=== PATIENT | female | born 1965 | race Two or more races ===

== ENCOUNTER 2017-04-24 09:59 | Outpatient (CLI) | payer OTHER ==
[~2017-04-24 09:59] MED LIST: CLONAZEPAM0.5 MG; CYMBALTA20 MG; DEPAKOTE ER500 MG; LEVOFLOXACIN250 MG PO; [UNRECOGNIZED DRUG - OTHER] PO
== END 2017-04-24 10:04 | disposition home or self-care (01) ==
LOC: LAB 09:59
DX: N91.2 Amenorrhea, unspecified (principal); E78.4 Other hyperlipidemia; E34.9 Endocrine disorder, unspecified; N95.1 Menopausal and female climacteric states; E23.6 Other disorders of pituitary gland; R19.00 Intra-abdominal and pelvic swelling, mass and lump, unspecified site; N39.0 Urinary tract infection, site not specified; E55.9 Vitamin D deficiency, unspecified; N73.9 Female pelvic inflammatory disease, unspecified; A60.04 Herpesviral vulvovaginitis

== ENCOUNTER 2017-06-05 09:26 | Outpatient (CLI) | payer OTHER | END 2017-06-05 09:32 | disposition home or self-care (01) | LOC: LAB 09:26 | DX: E78.4 Other hyperlipidemia (principal); E55.9 Vitamin D deficiency, unspecified; N95.1 Menopausal and female climacteric states; N39.0 Urinary tract infection, site not specified; R19.00 Intra-abdominal and pelvic swelling, mass and lump, unspecified site ==

== ENCOUNTER → 2017-07-11 | Outpatient (CLI) | payer OTHER | END | disposition home or self-care (01) | LOC: LAB 08:14 | DX: I10 Essential (primary) hypertension (principal); E11.9 Type 2 diabetes mellitus without complications; E78.2 Mixed hyperlipidemia; R00.8 Other abnormalities of heart beat ==

== ENCOUNTER 2017-07-25 09:00 | Outpatient (CLI) | payer OTHER | END 2017-07-25 09:06 | disposition home or self-care (01) | LOC: MAMO-SONO 09:00 | DX: Z12.31 Encounter for screening mammogram for malignant neoplasm of breast (principal); Z87.898 Personal history of other specified conditions ==

== ENCOUNTER 2017-08-01 07:48 | Outpatient (CLI) | payer OTHER | END 2017-08-01 11:46 | disposition home or self-care (01) | LOC: LAB 07:48 | DX: E78.4 Other hyperlipidemia (principal); N60.81 Other benign mammary dysplasias of right breast; R87.613 High grade squamous intraepithelial lesion on cytologic smear of cervix (HGSIL); F32.2 Major depressive disorder, single episode, severe without psychotic features; E78.2 Mixed hyperlipidemia ==

== ENCOUNTER 2017-08-15 09:14 | Outpatient (CLI) | payer OTHER | END 2017-08-15 09:18 | disposition home or self-care (01) | LOC: RX STUDY 09:14 | DX: K59.04 Chronic idiopathic constipation (principal); R13.14 Dysphagia, pharyngoesophageal phase; K30 Functional dyspepsia ==

== ENCOUNTER 2017-08-22 07:24 | Outpatient (CLI) | payer OTHER | END 2017-08-22 07:33 | disposition home or self-care (01) | LOC: LAB 07:24 | DX: N39.0 Urinary tract infection, site not specified (principal); N60.81 Other benign mammary dysplasias of right breast; R87.612 Low grade squamous intraepithelial lesion on cytologic smear of cervix (LGSIL); J32.2 Chronic ethmoidal sinusitis; E78.2 Mixed hyperlipidemia; Z01.812 Encounter for preprocedural laboratory examination; R82.79 Other abnormal findings on microbiological examination of urine ==

== ENCOUNTER 2017-09-16 07:10 | Outpatient (CLI) | payer OTHER | END 2017-09-16 08:12 | disposition home or self-care (01) | LOC: LAB 07:10 | DX: B19.9 Unspecified viral hepatitis without hepatic coma (principal); R10.84 Generalized abdominal pain; D64.89 Other specified anemias; E03.4 Atrophy of thyroid (acquired); E78.2 Mixed hyperlipidemia; N39.0 Urinary tract infection, site not specified; E11.65 Type 2 diabetes mellitus with hyperglycemia ==

== ENCOUNTER 2017-09-16 13:44 | Outpatient (CLI) | payer OTHER | END 2017-09-16 13:46 | disposition home or self-care (01) | LOC: SONOGRAMA 13:44 | DX: N31.8 Other neuromuscular dysfunction of bladder (principal) ==

== ENCOUNTER → 2017-10-11 | Outpatient (CLI) | payer OTHER | END | disposition home or self-care (01) | LOC: LAB 10:01 | DX: E11.9 Type 2 diabetes mellitus without complications (principal); I10 Essential (primary) hypertension; E78.2 Mixed hyperlipidemia; R10.2 Pelvic and perineal pain ==

== ENCOUNTER 2017-11-05 07:32 | Outpatient (CLI) | payer OTHER | END 2017-11-05 07:43 | disposition home or self-care (01) | LOC: LAB 07:32 | DX: D64.89 Other specified anemias (principal); D39.0 Neoplasm of uncertain behavior of uterus; N39.0 Urinary tract infection, site not specified; E78.4 Other hyperlipidemia; E03.8 Other specified hypothyroidism; M45.4 Ankylosing spondylitis of thoracic region; E55.9 Vitamin D deficiency, unspecified; I48.91 Unspecified atrial fibrillation; E11.8 Type 2 diabetes mellitus with unspecified complications; R82.79 Other abnormal findings on microbiological examination of urine ==

== ENCOUNTER 2017-11-05 12:45 | Outpatient (CLI) | payer OTHER | END 2017-11-05 12:49 | disposition home or self-care (01) | LOC: RAD 12:45 | DX: M06.4 Inflammatory polyarthropathy (principal) ==

== ENCOUNTER 2017-11-07 10:48 | Outpatient (CLI) | payer OTHER | END 2017-11-07 12:28 | disposition home or self-care (01) | LOC: NUCLEAR 10:48 | DX: I87.323 Chronic venous hypertension (idiopathic) with inflammation of bilateral lower extremity (principal); I87.2 Venous insufficiency (chronic) (peripheral) ==

== ENCOUNTER 2017-11-07 12:06 | Outpatient (CLI) | payer OTHER | END 2017-11-07 13:38 | disposition home or self-care (01) | LOC: MRI 12:06 | DX: M54.16 Radiculopathy, lumbar region (principal) | CPT/HCPCS: 72148 ==

== ENCOUNTER 2017-11-07 12:26 | Outpatient (CLI) | payer OTHER | END 2017-11-07 12:28 | disposition home or self-care (01) | LOC: SONOGRAMA 12:26 | DX: M05.66 Rheumatoid arthritis of knee with involvement of other organs and systems (principal) ==

== ENCOUNTER 2018-03-28 09:41 | Outpatient (CLI) | payer OTHER | END 2018-03-28 09:51 | disposition home or self-care (01) | LOC: LAB 09:41 | DX: M19.90 Unspecified osteoarthritis, unspecified site (principal); D64.89 Other specified anemias; I10 Essential (primary) hypertension; E07.89 Other specified disorders of thyroid; E11.8 Type 2 diabetes mellitus with unspecified complications; E78.00 Pure hypercholesterolemia, unspecified; E55.9 Vitamin D deficiency, unspecified ==

== ENCOUNTER 2018-06-04 12:51 | Outpatient (CLI) | payer OTHER | END 2018-06-04 12:55 | disposition home or self-care (01) | LOC: LAB 12:51 | DX: N91.2 Amenorrhea, unspecified (principal); N95.1 Menopausal and female climacteric states; R19.00 Intra-abdominal and pelvic swelling, mass and lump, unspecified site; A60.04 Herpesviral vulvovaginitis; N39.0 Urinary tract infection, site not specified; E78.49 Other hyperlipidemia ==

== ENCOUNTER 2018-07-28 14:50 | Outpatient (CLI) | payer OTHER | END 2018-07-28 15:06 | disposition home or self-care (01) | LOC: MAMO-SONO 14:50 | DX: N60.12 Diffuse cystic mastopathy of left breast (principal); N60.11 Diffuse cystic mastopathy of right breast; N63.10 Unspecified lump in the right breast, unspecified quadrant; N63.20 Unspecified lump in the left breast, unspecified quadrant; Z12.31 Encounter for screening mammogram for malignant neoplasm of breast; Z87.898 Personal history of other specified conditions ==

== ENCOUNTER 2018-12-28 12:50 | Outpatient (CLI) | payer OTHER | END 2018-12-28 15:00 | disposition home or self-care (01) | LOC: LAB 12:50 | DX: N91.2 Amenorrhea, unspecified (principal); E78.49 Other hyperlipidemia; E34.8 Other specified endocrine disorders; N95.1 Menopausal and female climacteric states; E23.6 Other disorders of pituitary gland; R19.00 Intra-abdominal and pelvic swelling, mass and lump, unspecified site; N39.0 Urinary tract infection, site not specified; E55.9 Vitamin D deficiency, unspecified; N73.8 Other specified female pelvic inflammatory diseases; A60.04 Herpesviral vulvovaginitis; Z34.90 Encounter for supervision of normal pregnancy, unspecified, unspecified trimester ==

== ENCOUNTER → 2019-02-04 | Outpatient (CLI) | payer OTHER | END | disposition home or self-care (01) | LOC: MAMO-SONO 09:15 | DX: N63.10 Unspecified lump in the right breast, unspecified quadrant (principal); N63.20 Unspecified lump in the left breast, unspecified quadrant; Z12.31 Encounter for screening mammogram for malignant neoplasm of breast ==

== ENCOUNTER → 2019-02-24 09:26 | Outpatient (CLI) | payer OTHER | END | disposition home or self-care (01) | LOC: LAB 09:26 | DX: N39.0 Urinary tract infection, site not specified (principal); N60.81 Other benign mammary dysplasias of right breast; R87.613 High grade squamous intraepithelial lesion on cytologic smear of cervix (HGSIL); F32.2 Major depressive disorder, single episode, severe without psychotic features; E78.2 Mixed hyperlipidemia ==

== ENCOUNTER → 2019-03-24 12:41 | Outpatient (CLI) | payer OTHER | END | disposition home or self-care (01) | LOC: LAB 12:41 | DX: N39.0 Urinary tract infection, site not specified (principal); I10 Essential (primary) hypertension ==

== ENCOUNTER 2019-04-28 15:20 | Outpatient (CLI) | payer OTHER | END 2019-04-28 18:00 | disposition home or self-care (01) | LOC: LAB 15:20 | DX: N39.0 Urinary tract infection, site not specified (principal); N60.81 Other benign mammary dysplasias of right breast; R87.613 High grade squamous intraepithelial lesion on cytologic smear of cervix (HGSIL); F32.2 Major depressive disorder, single episode, severe without psychotic features; E78.2 Mixed hyperlipidemia ==

== ENCOUNTER 2019-04-30 10:59 | Outpatient (CLI) | payer OTHER | END 2019-04-30 11:08 | disposition home or self-care (01) | LOC: LAB 10:59 | DX: N39.0 Urinary tract infection, site not specified (principal) ==

== ENCOUNTER → 2020-02-04 09:57 | Outpatient (CLI) | payer OTHER | END | disposition home or self-care (01) | LOC: LAB 09:57 | PROVIDERS: ATTEND Obstetrics & Gynecology | DX: E78.49 Other hyperlipidemia (principal); E34.8 Other specified endocrine disorders; N95.1 Menopausal and female climacteric states; R19.00 Intra-abdominal and pelvic swelling, mass and lump, unspecified site; N39.0 Urinary tract infection, site not specified; E55.9 Vitamin D deficiency, unspecified; A60.09 Herpesviral infection of other urogenital tract ==

== ENCOUNTER 2020-03-03 11:00 | Outpatient (CLI) | payer OTHER | END 2020-03-03 11:07 | disposition home or self-care (01) | LOC: MAMO-SONO 11:00 | PROVIDERS: ATTEND Internal Medicine Hematology & Oncology | DX: R92.0 Mammographic microcalcification found on diagnostic imaging of breast (principal) ==

== ENCOUNTER 2020-03-07 09:52 | Outpatient (CLI) | payer OTHER | END 2020-03-07 10:41 | disposition home or self-care (01) | LOC: MRI 09:52 | PROVIDERS: ATTEND Obstetrics & Gynecology | DX: S83.242A Other tear of medial meniscus, current injury, left knee, initial encounter (principal); M87.88 Other osteonecrosis, other site; R60.9 Edema, unspecified | CPT/HCPCS: 73218; 73718; 73721 ==

== ENCOUNTER 2020-03-30 10:51 | Outpatient (CLI) | payer OTHER | END 2020-03-30 10:57 | disposition home or self-care (01) | LOC: LAB 10:51 | PROVIDERS: ATTEND Orthopaedic Surgery | DX: D64.89 Other specified anemias (principal); I11.9 Hypertensive heart disease without heart failure; M06.4 Inflammatory polyarthropathy; M13.88 Other specified arthritis, other site ==

== ENCOUNTER → 2020-04-03 08:17 | Outpatient (CLI) | payer OTHER | END | disposition home or self-care (01) | LOC: LAB 08:17 | PROVIDERS: ATTEND Internal Medicine Hematology & Oncology | DX: F32.2 Major depressive disorder, single episode, severe without psychotic features (principal); N60.81 Other benign mammary dysplasias of right breast; R87.613 High grade squamous intraepithelial lesion on cytologic smear of cervix (HGSIL); E78.2 Mixed hyperlipidemia ==

== ENCOUNTER → 2020-04-03 | Outpatient (CLI) | payer OTHER ==
[~2020-04-03] MED LIST changes: +NABUMETONE750 MG PO; +NEURONTIN300 MG PO
== END | disposition home or self-care (01) ==
LOC: MRI 03-31 07:15
PROVIDERS: ATTEND Orthopaedic Surgery
DX: M25.521 Pain in right elbow (principal); M25.522 Pain in left elbow; M25.561 Pain in right knee; M25.562 Pain in left knee; M25.551 Pain in right hip; M25.552 Pain in left hip; G93.89 Other specified disorders of brain; R87.613 High grade squamous intraepithelial lesion on cytologic smear of cervix (HGSIL); F32.2 Major depressive disorder, single episode, severe without psychotic features; E78.2 Mixed hyperlipidemia; N60.81 Other benign mammary dysplasias of right breast
CPT/HCPCS: 70553; 73070; 73521; 73564; A9575

== ENCOUNTER 2020-04-12 13:30 | Outpatient (CLI) | payer OTHER ==
[~2020-04-12 13:30] MED LIST changes: -NABUMETONE750 MG PO; -NEURONTIN300 MG PO
[2020-04-14] MEDS ORDERED: NEURONTIN300 MG PO (12:25)
[2020-04-14] MEDS ORDERED: NABUMETONE750 MG PO (12:25)
== END 2020-04-12 13:34 | disposition home or self-care (01) ==
LOC: LAB 13:30
PROVIDERS: ATTEND Urology
DX: N39.0 Urinary tract infection, site not specified (principal); B96.1 Klebsiella pneumoniae [K. pneumoniae] as the cause of diseases classified elsewhere

== ENCOUNTER 2020-04-17 15:26 | Outpatient (CLI) | payer OTHER ==
[~2020-04-17 15:26] MED LIST changes: +NABUMETONE750 MG PO; +NEURONTIN300 MG PO
== END 2020-04-17 15:32 | disposition home or self-care (01) ==
LOC: LAB 15:26
PROVIDERS: ATTEND Internal Medicine Hematology & Oncology
DX: N60.81 Other benign mammary dysplasias of right breast (principal); R87.613 High grade squamous intraepithelial lesion on cytologic smear of cervix (HGSIL); F32.2 Major depressive disorder, single episode, severe without psychotic features; E78.2 Mixed hyperlipidemia; D68.8 Other specified coagulation defects; Z20.828 Contact with and (suspected) exposure to other viral communicable diseases

== ENCOUNTER 2020-05-05 06:42 | Outpatient (CLI) | payer OTHER | END 2020-05-05 07:13 | disposition home or self-care (01) | LOC: LAB 06:42 | PROVIDERS: ATTEND Internal Medicine Hematology & Oncology | DX: N39.0 Urinary tract infection, site not specified (principal); N60.81 Other benign mammary dysplasias of right breast; R87.613 High grade squamous intraepithelial lesion on cytologic smear of cervix (HGSIL); F32.2 Major depressive disorder, single episode, severe without psychotic features; E78.2 Mixed hyperlipidemia; M79.604 Pain in right leg; B96.29 Other Escherichia coli [E. coli] as the cause of diseases classified elsewhere ==

== ENCOUNTER → 2020-07-20 12:46 | Outpatient (CLI) | payer OTHER | END | disposition home or self-care (01) | LOC: LAB 12:46 | PROVIDERS: ATTEND Obstetrics & Gynecology | DX: E78.49 Other hyperlipidemia (principal); E03.8 Other specified hypothyroidism; N95.1 Menopausal and female climacteric states; N39.0 Urinary tract infection, site not specified ==

== ENCOUNTER 2020-07-24 10:02 | Outpatient (CLI) | payer OTHER | END 2020-07-24 10:17 | disposition home or self-care (01) | LOC: TOM 10:02 | PROVIDERS: ATTEND Obstetrics & Gynecology | DX: R19.00 Intra-abdominal and pelvic swelling, mass and lump, unspecified site (principal) ==

== ENCOUNTER 2020-08-05 09:50 | Outpatient (CLI) | payer OTHER | END 2020-08-05 09:59 | disposition home or self-care (01) | LOC: LAB 09:50 | PROVIDERS: ATTEND Obstetrics & Gynecology | DX: N91.2 Amenorrhea, unspecified (principal); E78.49 Other hyperlipidemia; N95.1 Menopausal and female climacteric states; E34.8 Other specified endocrine disorders; N39.0 Urinary tract infection, site not specified; E55.9 Vitamin D deficiency, unspecified ==

== ENCOUNTER 2020-09-12 07:53 | Emergency (ER) | payer OTHER ==
[~2020-09-12] VITALS: Ht 160 cm; Wt 81.2 kg
[2020-09-12] MEDS ORDERED: MACROBID 100 M100 MG PO (12:26)
== END 2020-09-12 12:38 | disposition home or self-care (01) ==
LOC: ER 07:53
DX: N39.0 Urinary tract infection, site not specified (principal); N83.292 Other ovarian cyst, left side; D25.1 Intramural leiomyoma of uterus; R10.2 Pelvic and perineal pain; Z03.818 Encounter for observation for suspected exposure to other biological agents ruled out

== ENCOUNTER 2020-10-14 07:22 | Outpatient (CLI) | payer OTHER ==
[~2020-10-14 07:22] MED LIST changes: +MACROBID 100 M100 MG PO
== END 2020-10-14 07:27 | disposition home or self-care (01) ==
LOC: LAB 07:22
DX: N39.0 Urinary tract infection, site not specified (principal); N60.81 Other benign mammary dysplasias of right breast; R87.613 High grade squamous intraepithelial lesion on cytologic smear of cervix (HGSIL); E78.2 Mixed hyperlipidemia; R97.8 Other abnormal tumor markers

== ENCOUNTER 2020-11-11 11:01 | Outpatient (CLI) | payer OTHER | END 2020-11-11 12:13 | disposition home or self-care (01) | LOC: LAB 11:01 | DX: N39.0 Urinary tract infection, site not specified (principal) ==

== ENCOUNTER 2020-11-18 11:33 | Outpatient (CLI) | payer OTHER | END 2020-11-18 11:37 | disposition home or self-care (01) | LOC: LAB 11:33 | DX: N39.0 Urinary tract infection, site not specified (principal) ==

== ENCOUNTER 2020-12-09 09:01 | Outpatient (CLI) | payer OTHER | END 2020-12-09 09:22 | disposition home or self-care (01) | LOC: LAB 09:01 | DX: N95.1 Menopausal and female climacteric states (principal); E78.49 Other hyperlipidemia; R19.00 Intra-abdominal and pelvic swelling, mass and lump, unspecified site; E55.9 Vitamin D deficiency, unspecified ==

== ENCOUNTER 2021-01-03 07:33 | Outpatient (CLI) | payer OTHER | END 2021-01-03 07:39 | disposition home or self-care (01) | LOC: SONOGRAMA 07:33 → RX STUDY 08:15 | PROVIDERS: ATTEND Urology | DX: K57.30 Diverticulosis of large intestine without perforation or abscess without bleeding (principal); N39.0 Urinary tract infection, site not specified; K22.0 Achalasia of cardia; R13.14 Dysphagia, pharyngoesophageal phase; K58.8 Other irritable bowel syndrome; K59.04 Chronic idiopathic constipation; E78.49 Other hyperlipidemia ==

== ENCOUNTER → 2021-02-17 10:40 | Outpatient (CLI) | payer OTHER | END | disposition home or self-care (01) | LOC: LAB 10:40 | PROVIDERS: ATTEND Internal Medicine Hematology & Oncology | DX: N39.0 Urinary tract infection, site not specified (principal); B96.4 Proteus (mirabilis) (morganii) as the cause of diseases classified elsewhere; D68.69 Other thrombophilia; N60.81 Other benign mammary dysplasias of right breast; R87.613 High grade squamous intraepithelial lesion on cytologic smear of cervix (HGSIL); F32.2 Major depressive disorder, single episode, severe without psychotic features ==

== ENCOUNTER 2021-03-05 14:32 | Outpatient (CLI) | payer OTHER | END 2021-03-05 14:35 | disposition home or self-care (01) | LOC: MAMO-SONO 14:32 | PROVIDERS: ATTEND Internal Medicine Hematology & Oncology | DX: N60.11 Diffuse cystic mastopathy of right breast (principal); N60.12 Diffuse cystic mastopathy of left breast; Z12.31 Encounter for screening mammogram for malignant neoplasm of breast ==

== ENCOUNTER 2021-03-26 12:24 | Outpatient (CLI) | payer OTHER | END 2021-03-26 15:00 | disposition home or self-care (01) | LOC: LAB 12:24 | PROVIDERS: ATTEND Obstetrics & Gynecology | DX: E78.49 Other hyperlipidemia (principal); E34.8 Other specified endocrine disorders; N95.1 Menopausal and female climacteric states; E23.6 Other disorders of pituitary gland; R19.00 Intra-abdominal and pelvic swelling, mass and lump, unspecified site; N39.0 Urinary tract infection, site not specified ==

== ENCOUNTER 2021-03-27 14:13 | Outpatient (CLI) | payer OTHER | END 2021-03-27 14:20 | disposition home or self-care (01) | LOC: MRI 14:13 | PROVIDERS: ATTEND Obstetrics & Gynecology | DX: N83.292 Other ovarian cyst, left side (principal); N83.291 Other ovarian cyst, right side; R10.84 Generalized abdominal pain | CPT/HCPCS: 72197; 74183; A9575; 72196; 74182 ==

== ENCOUNTER 2021-04-21 12:26 | Outpatient (CLI) | payer OTHER | END 2021-04-21 18:00 | disposition home or self-care (01) | LOC: LAB 12:26 | DX: E78.5 Hyperlipidemia, unspecified (principal); E34.9 Endocrine disorder, unspecified; N95.1 Menopausal and female climacteric states; N39.0 Urinary tract infection, site not specified; E55.9 Vitamin D deficiency, unspecified ==

== ENCOUNTER 2021-05-09 09:49 | Outpatient (CLI) | payer OTHER | END 2021-05-09 09:57 | disposition home or self-care (01) | LOC: RAD 09:49 | PROVIDERS: ATTEND Internal Medicine Hematology & Oncology | DX: M19.90 Unspecified osteoarthritis, unspecified site (principal) ==

== ENCOUNTER → 2021-07-09 11:41 | Outpatient (CLI) | payer OTHER | END | disposition home or self-care (01) | LOC: LAB 11:41 | PROVIDERS: ATTEND Internal Medicine Hematology & Oncology | DX: D68.69 Other thrombophilia (principal); N60.81 Other benign mammary dysplasias of right breast; R87.613 High grade squamous intraepithelial lesion on cytologic smear of cervix (HGSIL); F32.2 Major depressive disorder, single episode, severe without psychotic features; N39.0 Urinary tract infection, site not specified ==

== ENCOUNTER 2021-08-04 11:17 | Outpatient (CLI) | payer OTHER | END 2021-08-04 11:22 | disposition home or self-care (01) | LOC: LAB 11:17 | PROVIDERS: ATTEND Urology | DX: N39.0 Urinary tract infection, site not specified (principal) ==

== ENCOUNTER 2021-08-07 13:54 | Emergency (ER) | payer OTHER ==
[~2021-08-07] VITALS: Ht 160 cm; Wt 77.1 kg
[2021-08-07] MEDS ORDERED: LEVOTHYROXINE25 MCG PO (14:17)
[2021-08-07] MEDS ORDERED: PEPCID AC20 MG PO (14:17)
[2021-08-07] MEDS ORDERED: CLONAZEPAM2 MG PO (14:17)
[2021-08-07] MEDS ORDERED: TRAZODONE HCL150 MG (14:19)
== END 2021-08-07 22:09 | disposition home or self-care (01) ==
LOC: ER 13:54
DX: N93.8 Other specified abnormal uterine and vaginal bleeding (principal); Z88.8 Allergy status to other drugs, medicaments and biological substances; D25.9 Leiomyoma of uterus, unspecified; N83.202 Unspecified ovarian cyst, left side

== ENCOUNTER 2021-08-11 10:14 | Outpatient (CLI) | payer OTHER ==
[~2021-08-11 10:14] MED LIST changes: +CLONAZEPAM2 MG PO; +LEVOTHYROXINE25 MCG PO; +PEPCID AC20 MG PO; +TRAZODONE HCL150 MG
== END 2021-08-11 10:51 | disposition home or self-care (01) ==
LOC: LAB 10:14
DX: N39.0 Urinary tract infection, site not specified (principal)

== ENCOUNTER 2021-10-11 15:58 | Outpatient (CLI) | payer OTHER | END 2021-10-11 15:59 | disposition home or self-care (01) | LOC: LAB 15:58 | DX: N39.0 Urinary tract infection, site not specified (principal) ==

== ENCOUNTER 2021-10-26 15:52 | Outpatient (CLI) | payer OTHER | END 2021-10-26 16:00 | disposition home or self-care (01) | LOC: LAB 15:52 | PROVIDERS: ATTEND Urology | DX: N39.0 Urinary tract infection, site not specified (principal) ==

== ENCOUNTER → 2021-11-29 12:42 | Outpatient (CLI) | payer OTHER | END | disposition home or self-care (01) | LOC: LAB 12:42 | PROVIDERS: ATTEND Internal Medicine Hematology & Oncology | DX: N60.81 Other benign mammary dysplasias of right breast (principal); R87.613 High grade squamous intraepithelial lesion on cytologic smear of cervix (HGSIL); J32.2 Chronic ethmoidal sinusitis; E78.2 Mixed hyperlipidemia; N39.9 Disorder of urinary system, unspecified ==

== ENCOUNTER → 2022-02-16 12:01 | Outpatient (CLI) | payer OTHER | END | disposition home or self-care (01) | LOC: LAB 12:01 | PROVIDERS: ATTEND Internal Medicine | DX: J06.9 Acute upper respiratory infection, unspecified (principal); Z20.822 Contact with and (suspected) exposure to COVID-19; J20.0 Acute bronchitis due to Mycoplasma pneumoniae; R68.89 Other general symptoms and signs ==

== ENCOUNTER 2022-03-04 07:37 | Outpatient (CLI) | payer OTHER | END 2022-03-04 07:43 | disposition home or self-care (01) | LOC: TOM 07:37 | PROVIDERS: ATTEND Internal Medicine | DX: J44.9 Chronic obstructive pulmonary disease, unspecified (principal); R09.02 Hypoxemia; R91.8 Other nonspecific abnormal finding of lung field ==

== ENCOUNTER → 2022-03-28 | Outpatient (CLI) | payer OTHER | END | disposition home or self-care (01) | LOC: RAD 11:28 | PROVIDERS: ATTEND Internal Medicine | DX: J44.9 Chronic obstructive pulmonary disease, unspecified (principal); R09.02 Hypoxemia; R91.8 Other nonspecific abnormal finding of lung field ==

== ENCOUNTER → 2022-05-01 | Outpatient (CLI) | payer OTHER | END | disposition home or self-care (01) | LOC: MAMO-SONO 14:24 | PROVIDERS: ATTEND Obstetrics & Gynecology | DX: Z12.31 Encounter for screening mammogram for malignant neoplasm of breast (principal); N60.11 Diffuse cystic mastopathy of right breast; N60.12 Diffuse cystic mastopathy of left breast; N63.10 Unspecified lump in the right breast, unspecified quadrant; N63.20 Unspecified lump in the left breast, unspecified quadrant ==

== ENCOUNTER 2022-05-16 08:33 | Outpatient (CLI) | payer OTHER | END 2022-05-16 08:34 | disposition home or self-care (01) | LOC: LAB 08:33 | DX: D68.69 Other thrombophilia (principal); N60.81 Other benign mammary dysplasias of right breast; R87.613 High grade squamous intraepithelial lesion on cytologic smear of cervix (HGSIL); E78.2 Mixed hyperlipidemia ==

== ENCOUNTER 2022-05-16 09:03 | Outpatient (CLI) | payer OTHER | END 2022-05-16 09:08 | disposition home or self-care (01) | LOC: TOM 09:03 | DX: Z09 Encounter for follow-up examination after completed treatment for conditions other than malignant neoplasm (principal); Z87.01 Personal history of pneumonia (recurrent); Z85.3 Personal history of malignant neoplasm of breast; Z85.41 Personal history of malignant neoplasm of cervix uteri ==

== ENCOUNTER 2022-09-05 11:37 | Outpatient (CLI) | payer OTHER | END 2022-09-05 11:47 | disposition home or self-care (01) | LOC: LAB 11:37 | PROVIDERS: ATTEND Obstetrics & Gynecology | DX: E78.5 Hyperlipidemia, unspecified (principal); N95.1 Menopausal and female climacteric states; R19.00 Intra-abdominal and pelvic swelling, mass and lump, unspecified site; E55.9 Vitamin D deficiency, unspecified; N73.9 Female pelvic inflammatory disease, unspecified; U07.1 COVID-19 ==

== ENCOUNTER 2022-12-25 16:03 | Outpatient (CLI) | payer OTHER ==
[2022-12-25 16:46] LABS: PH,URINE 5.5 (5.0-8.0); URINE APPEARANCE Clear; URINE BILIRRUBIN Negative (NEGATIVE); URINE BLOOD Negative; URINE COLOR Yellow; URINE GLUCOSE Negative (NEGATIVE); URINE LEUKOCYTE Small; URINE NITRATE Negative; URINE PROTEIN Negative (NEGATIVE); URINE UROBILINOGEN 0.2 E.U./dl
[2022-12-25 16:50] LABS: URINE BACTERIA 5198.7 uL (0.0-1933); URINE EPITHELIAL CELLS 15.4 uL (0.0-38.8); URINE WBC 200.5 uL (0.0-23.2)
[2022-12-25 16:57] LABS: ERYTHROCYTE SEDIMENTATION RATE 7 mm/hr
[2022-12-25 17:11] LABS: URIC ACID 6.3 mg/dL (2.5-7.5)
[2022-12-25 17:12] LABS: C-REACTIVE PROTEIN 0.85 MG/DL (0.00-0.29)
[2022-12-25 17:15] LABS: URINE MUCUS SCANT
[2022-12-26 13:33] LABS: PLATELET ESTIMATE NORMAL (NORMAL)
== END 2022-12-25 16:10 | disposition home or self-care (01) ==
LOC: LAB 16:03
PROVIDERS: ATTEND Orthopaedic Surgery
DX: D64.89 Other specified anemias (principal); M10.9 Gout, unspecified; N39.0 Urinary tract infection, site not specified; M06.4 Inflammatory polyarthropathy

== ENCOUNTER 2022-12-27 11:21 | Outpatient (CLI) | payer OTHER ==
[2022-12-27 13:10] LABS: ALBUMIN 3.8 gm/dL (3.4-5.0); BILIRUBIN TOTAL 0.51 mg/dL (0.3-1.2); CALCIUM 9.6 mg/dL (8.5-10.1); CREATININE SERUM 1.16 mg/dL (0.55-1.02); GFR 48.5; GLOBULINA 3.2 G/DL (2.4-3.5); MAGNESIUM 2.1 mg/dL (1.8-2.4); PHOSPHOROUS 3.4 mg/dL (2.5-4.9); POTASSIUM 4.21 mEq/L (3.5-5.1)
== END 2022-12-27 11:22 | disposition home or self-care (01) ==
LOC: LAB 11:21
PROVIDERS: ATTEND Orthopaedic Surgery
DX: E55.9 Vitamin D deficiency, unspecified (principal); M85.9 Disorder of bone density and structure, unspecified; E56.1 Deficiency of vitamin K; M81.8 Other osteoporosis without current pathological fracture; E88.89 Other specified metabolic disorders; E75.22 Gaucher disease; Z88.3 Allergy status to other anti-infective agents

== ENCOUNTER 2023-06-17 15:51 | Outpatient (CLI) | payer OTHER ==
[2023-06-17 16:35] LABS: URINE APPEARANCE Clear; URINE BILIRRUBIN Negative (NEGATIVE); URINE BLOOD Negative; URINE COLOR Yellow; URINE GLUCOSE Negative (NEGATIVE); URINE LEUKOCYTE Moderate; URINE NITRATE Negative; URINE PROTEIN Negative (NEGATIVE); URINE UROBILINOGEN 0.2 E.U./dl
[2023-06-17 16:36] LABS: URINE EPITHELIAL CELLS 5.5 uL (0.0-38.8); URINE WBC 400.1 uL (0.0-23.2)
[2023-06-17 16:41] LABS: URINE BACTERIA > 9821.5 uL (0.0-1933); URINE RBC 0.8 uL (0.0-20.8)
== END 2023-06-17 15:54 | disposition home or self-care (01) ==
LOC: LAB 15:51
PROVIDERS: ATTEND Obstetrics & Gynecology
DX: N39.0 Urinary tract infection, site not specified (principal)

== ENCOUNTER 2023-11-28 14:03 | Outpatient (CLI) | payer OTHER | END 2023-11-28 14:13 | disposition home or self-care (01) | LOC: MRI 14:03 | PROVIDERS: ATTEND Orthopaedic Surgery | DX: M87.052 Idiopathic aseptic necrosis of left femur (principal) | CPT/HCPCS: 73721 ==

== ENCOUNTER 2023-11-28 15:14 | Outpatient (CLI) | payer OTHER ==
[2023-11-28 15:52] LABS: URINE APPEARANCE Clear; URINE BILIRRUBIN Negative (NEGATIVE); URINE BLOOD Negative; URINE COLOR Yellow; URINE GLUCOSE Negative (NEGATIVE); URINE KETONE Negative (NEGATIVE); URINE LEUKOCYTE Moderate; URINE NITRATE Positive; URINE PROTEIN Negative (NEGATIVE); URINE UROBILINOGEN 0.2 E.U./dl
[2023-11-28 15:54] LABS: URINE EPITHELIAL CELLS 3.2 uL (0.0-38.8); URINE RBC 4.7 uL (0.0-20.8); URINE WBC 512.5 uL (0.0-23.2)
[2023-11-28 15:58] LABS: URINE BACTERIA > 9821.5 uL (0.0-1933)
[2023-11-28 16:07] LABS: HEMATOCRIT 43.2 % (36.0-45.00); HEMOGLOBIN 14.3 g/dL (12.0-15.00); MEAN CORPUSCULAR HEMOGLOBIN 29.4 pg (27.00-32.0); MEAN CORPUSCULAR HGB CONC 33.1 g/dl (32.0-36.0); PLATELET COUNT 243 K/uL (150-450); RED BLOOD COUNT 4.85 M/uL (4.00-6.00); RED CELL DISTRIBUTION WIDTH 14.5 % (11.5-14.5)
[2023-11-28 16:25] LABS: ALBUMIN 4.1 gm/dL (3.4-5.0); BILIRUBIN TOTAL 0.65 mg/dL (0.3-1.2); CALCIUM 10.3 mg/dL (8.5-10.1); CREATININE SERUM 1.09 mg/dL (0.55-1.02); GFR 51.92; GLOBULINA 3.3 G/DL (2.4-3.5); POTASSIUM 5.04 mEq/L (3.5-5.1); TOTAL PROTEIN 7.4 gm/dL (6.4-8.2)
== END 2023-11-28 15:15 | disposition home or self-care (01) ==
LOC: LAB 15:14
PROVIDERS: ATTEND Internal Medicine Hematology & Oncology
DX: N60.81 Other benign mammary dysplasias of right breast (principal); R57.9 Shock, unspecified

== ENCOUNTER 2023-12-03 14:12 | Outpatient (CLI) | payer OTHER ==
[2023-12-03 14:58] LABS: URINE APPEARANCE Clear; URINE BILIRRUBIN Negative (NEGATIVE); URINE BLOOD Negative; URINE COLOR Yellow; URINE GLUCOSE Negative (NEGATIVE); URINE KETONE Negative (NEGATIVE); URINE LEUKOCYTE Moderate; URINE NITRATE Negative; URINE PROTEIN Negative (NEGATIVE); URINE UROBILINOGEN 0.2 E.U./dl
[2023-12-03 15:01] LABS: URINE EPITHELIAL CELLS 10.8 uL (0.0-38.8); URINE RBC 2.5 uL (0.0-20.8); URINE WBC 448.9 uL (0.0-23.2)
[2023-12-03 15:25] LABS: URINE BACTERIA > 9821.5 uL (0.0-1933); URINE CAST 0.15 uL (0.0-1.40)
== END 2023-12-03 14:17 | disposition home or self-care (01) ==
LOC: LAB 14:12
PROVIDERS: ATTEND Obstetrics & Gynecology
DX: N39.0 Urinary tract infection, site not specified (principal)

== ENCOUNTER 2024-01-30 14:26 | Outpatient (CLI) | payer OTHER ==
[2024-01-30 15:57] LABS: URINE APPEARANCE Clear; URINE BILIRRUBIN Negative (NEGATIVE); URINE BLOOD Negative; URINE COLOR Yellow; URINE GLUCOSE Negative (NEGATIVE); URINE KETONE Negative (NEGATIVE); URINE LEUKOCYTE Moderate; URINE NITRATE Positive; URINE PROTEIN Negative (NEGATIVE); URINE UROBILINOGEN 0.2 E.U./dl
[2024-01-30 15:57] LABS: HEMATOCRIT 40.6 % (36.0-45.00); HEMOGLOBIN 13.6 g/dL (12.0-15.00); MEAN CELL VOLUME 88.9 fL (80.00-100.00); MEAN CORPUSCULAR HEMOGLOBIN 29.8 pg (27.00-32.0); MEAN CORPUSCULAR HGB CONC 33.5 g/dl (32.0-36.0); PLATELET COUNT 216 K/uL (150-450); RED BLOOD COUNT 4.57 M/uL (4.00-6.00)
[2024-01-30 16:01] LABS: URINE EPITHELIAL CELLS 6.4 uL (0.0-38.8); URINE RBC 8.3 uL (0.0-20.8); URINE WBC 508.8 uL (0.0-23.2)
[2024-01-30 16:10] LABS: URINE BACTERIA > 9821.5 uL (0.0-1933)
[2024-01-30 16:23] LABS: TSH 1.66 uIU/mL (0.358-3.74)
[2024-01-30 16:24] LABS: CHOL HDL RATIO 4.2 (0-5.0)
[2024-01-30 17:22] LABS: VITAMIN D3 25 HYDROXY 32.01 ng/ml (30-120)
== END 2024-01-30 14:27 | disposition home or self-care (01) ==
LOC: LAB 14:26
PROVIDERS: ATTEND Obstetrics & Gynecology
DX: N95.1 Menopausal and female climacteric states (principal); E55.9 Vitamin D deficiency, unspecified; D51.9 Vitamin B12 deficiency anemia, unspecified

== ENCOUNTER 2024-03-15 11:23 | Outpatient (CLI) | payer OTHER ==
[2024-03-15 12:24] LABS: HEMATOCRIT 41.7 % (36.0-45.00); HEMOGLOBIN 13.7 g/dL (12.0-15.00); MEAN CELL VOLUME 91.5 fL (80.00-100.00); MEAN CORPUSCULAR HGB CONC 32.8 g/dl (32.0-36.0); PLATELET COUNT 242 K/uL (150-450); RED BLOOD COUNT 4.56 M/uL (4.00-6.00); RED CELL DISTRIBUTION WIDTH 13.5 % (11.5-14.5)
[2024-03-15 12:47] LABS: PH,URINE 5.5 (5.0-8.0); URINE APPEARANCE Clear; URINE BILIRRUBIN Negative (NEGATIVE); URINE BLOOD Negative; URINE COLOR Yellow; URINE GLUCOSE Negative (NEGATIVE); URINE KETONE Negative (NEGATIVE); URINE LEUKOCYTE Trace; URINE NITRATE Negative; URINE PROTEIN Negative (NEGATIVE); URINE UROBILINOGEN 0.2 E.U./dl
[2024-03-15 12:52] LABS: URINE EPITHELIAL CELLS 4.2 uL (0.0-38.8); URINE RBC 4.8 uL (0.0-20.8); URINE WBC 34.4 uL (0.0-23.2)
[2024-03-15 12:59] LABS: URINE BACTERIA > 9821.5 uL (0.0-1933)
[2024-03-15 14:27] LABS: VITAMIN D3 25 HYDROXY 31.33 ng/ml (30-120)
[2024-03-15 15:57] LABS: ALBUMIN 4.1 gm/dL (3.4-5.0); BILIRUBIN TOTAL 0.44 mg/dL (0.3-1.2); CALCIUM 9.6 mg/dL (8.5-10.1); CHOL HDL RATIO 2.2 (0-5.0); CREATININE SERUM 0.97 mg/dL (0.55-1.02); GFR 59.19; GLOBULINA 3.2 G/DL (2.4-3.5); POTASSIUM 4.32 mEq/L (3.5-5.1); TOTAL PROTEIN 7.3 gm/dL (6.4-8.2); TSH 1.44 uIU/mL (0.358-3.74)
[2024-03-17 10:08] LABS: FOLLICLE STIMULATING HORMONE 84.6 mIU/mL (.)
[2024-03-19 20:04] LABS: test free 1.3 pg/mL (0.0-4.2)
== END 2024-03-15 11:33 | disposition home or self-care (01) ==
LOC: LAB 11:23
PROVIDERS: ATTEND Obstetrics & Gynecology
DX: D64.9 Anemia, unspecified (principal); E78.5 Hyperlipidemia, unspecified; N95.1 Menopausal and female climacteric states; R19.00 Intra-abdominal and pelvic swelling, mass and lump, unspecified site; E55.9 Vitamin D deficiency, unspecified; N73.9 Female pelvic inflammatory disease, unspecified; Z34.90 Encounter for supervision of normal pregnancy, unspecified, unspecified trimester; K75.9 Inflammatory liver disease, unspecified; R73.9 Hyperglycemia, unspecified; Z20.822 Contact with and (suspected) exposure to COVID-19

== ENCOUNTER 2024-03-31 14:45 | Outpatient (CLI) | payer OTHER | END 2024-03-31 14:47 | disposition home or self-care (01) | LOC: SONOGRAMA 14:45 | PROVIDERS: ATTEND Obstetrics & Gynecology | DX: R19.00 Intra-abdominal and pelvic swelling, mass and lump, unspecified site (principal); N39.0 Urinary tract infection, site not specified ==

== ENCOUNTER 2024-04-15 13:51 | Outpatient (CLI) | payer OTHER | END 2024-04-15 14:02 | disposition home or self-care (01) | LOC: MAMO-SONO 13:51 | PROVIDERS: ATTEND Obstetrics & Gynecology | DX: N64.4 Mastodynia (principal); N64.53 Retraction of nipple; R10.2 Pelvic and perineal pain ==

== ENCOUNTER 2024-06-21 06:35 | Outpatient (CLI) | payer OTHER ==
[2024-06-21 08:22] LABS: HEMATOCRIT 38.2 % (36.0-45.00); HEMOGLOBIN 12.6 g/dL (12.0-15.00); MEAN CELL VOLUME 89.7 fL (80.00-100.00); MEAN CORPUSCULAR HEMOGLOBIN 29.5 pg (27.00-32.0); MEAN CORPUSCULAR HGB CONC 32.9 g/dl (32.0-36.0); PLATELET COUNT 222 K/uL (150-450); RED BLOOD COUNT 4.26 M/uL (4.00-6.00); RED CELL DISTRIBUTION WIDTH 13.8 % (11.5-14.5)
[2024-06-21 08:40] LABS: URINE APPEARANCE Clear; URINE BILIRRUBIN Negative (NEGATIVE); URINE BLOOD Negative; URINE COLOR Yellow; URINE GLUCOSE Negative (NEGATIVE); URINE KETONE Negative (NEGATIVE); URINE LEUKOCYTE Negative; URINE NITRATE Negative; URINE PROTEIN Negative (NEGATIVE); URINE UROBILINOGEN 0.2 E.U./dl
[2024-06-21 08:44] LABS: URINE BACTERIA 84.4 uL (0.0-1933); URINE EPITHELIAL CELLS 2.5 uL (0.0-38.8); URINE RBC 2.2 uL (0.0-20.8); URINE WBC 8.5 uL (0.0-23.2)
[2024-06-21 09:22] LABS: ALBUMIN 3.6 gm/dL (3.4-5.0); BILIRUBIN TOTAL 0.35 mg/dL (0.3-1.2); CALCIUM 9.7 mg/dL (8.5-10.1); CHOL HDL RATIO 2.7 (0-5.0); CREATININE SERUM 1.19 mg/dL (0.55-1.02); GFR 46.75; POTASSIUM 5.4 mEq/L (3.5-5.1); TOTAL PROTEIN 6.6 gm/dL (6.4-8.2); TSH 3.22 uIU/mL (0.358-3.74)
[2024-06-22 07:06] LABS: hav igm Negative (Negative); hcv Non Reactive (Non Reactive); hep b c Negative (Negative); hep b s ag Negative (Negative)
[2024-06-22 09:10] LABS: FOLLICLE STIMULATING HORMONE 89.1 mIU/mL (.)
[2024-06-22 09:10] LABS: ESTRADIOL SERUM < 5.0 pg/mL (.)
[2024-06-22 19:06] LABS: chla t Negative (Negative); neiss Negative (Negative)
== END 2024-06-21 06:43 | disposition home or self-care (01) ==
LOC: LAB 06:35
PROVIDERS: ATTEND Obstetrics & Gynecology
DX: Z91.041 Radiographic dye allergy status (principal); Z13.9 Encounter for screening, unspecified; D64.9 Anemia, unspecified; E87.8 Other disorders of electrolyte and fluid balance, not elsewhere classified; N39.0 Urinary tract infection, site not specified; E03.9 Hypothyroidism, unspecified; Z13.220 Encounter for screening for lipoid disorders; E55.9 Vitamin D deficiency, unspecified; Z11.3 Encounter for screening for infections with a predominantly sexual mode of transmission; Z79.890 Hormone replacement therapy; N95.1 Menopausal and female climacteric states; E28.2 Polycystic ovarian syndrome

== ENCOUNTER → 2024-06-21 08:09 | Outpatient (CLI) | payer OTHER | END | disposition home or self-care (01) | LOC: NUCLEAR 08:00 | DX: R00.2 Palpitations (principal) ==

== ENCOUNTER 2024-10-09 11:06 | Outpatient (CLI) | payer OTHER ==
[2024-10-09 11:48] LABS: BASO % 0.4 % (0.1-1.2); EOS # 0.08 (0.04-0.54); EOS % 1.5 % (0.7-7.0); LYMPH # 1.61 (1.18-3.74); LYMPH % 29.7 % (19.3-53.1); MEAN PLATELET VOLUME 9.70 fl (9.4-12.4); MONO # 0.42 (0.24-0.82); MONO % 7.7 % (4.7-12.5); NEUT # 3.29 (1.56-6.13); NEUT % 60.5 % (34.0-71.1); RED CELL DISTRIBUTION WIDTH 14.0 % (11.6-14.4)
[2024-10-09 12:48] LABS: ALT/SGPT 56.0 U/L (12-78); AST/SGOT 35.0 U/L (15-37); BILIRUBIN TOTAL 0.57 mg/dL (0.3-1.2); BUN CREA RATIO 21.0 (7.0-25.0); CREATININE SERUM 0.91 mg/dL (0.55-1.02); GFR 63.72; GLOBULINA 2.7 G/DL (2.4-3.5); GLUCOSE FASTING 82.0 mg/dL (65-100); OSMOLALITY SERUM 283.0 MOSM/KG (275-295); T4 TOTAL 10.7 UG/DL (4.8-13.9); TSH 2.74 uIU/mL (0.358-3.74)
[2024-10-11 11:48] LABS: FOLIC ACID 7.85 ng/ml (4.78-20); VITAMIN D3 25 HYDROXY 105.2 ng/ml (30-120)
== END 2024-10-09 11:19 | disposition home or self-care (01) ==
LOC: LAB 11:06
DX: E06.3 Autoimmune thyroiditis (principal); E05.90 Thyrotoxicosis, unspecified without thyrotoxic crisis or storm; E53.8 Deficiency of other specified B group vitamins; E55.9 Vitamin D deficiency, unspecified; D64.9 Anemia, unspecified; Z01.812 Encounter for preprocedural laboratory examination; R53.83 Other fatigue; R50.9 Fever, unspecified

== ENCOUNTER 2024-11-25 06:24 | Outpatient (CLI) | payer OTHER ==
[2024-11-25 07:15] LABS: BASO % 0.5 % (0.1-1.2); EOS # 0.09 (0.04-0.54); EOS % 1.4 % (0.7-7.0); LYMPH # 1.65 (1.18-3.74); LYMPH % 26.0 % (19.3-53.1); MEAN PLATELET VOLUME 10.20 fl (9.4-12.4); MONO # 0.49 (0.24-0.82); MONO % 7.7 % (4.7-12.5); NEUT # 4.08 (1.56-6.13); NEUT % 64.2 % (34.0-71.1); RED CELL DISTRIBUTION WIDTH 12.9 % (11.6-14.4)
[2024-11-25 07:32] LABS: URINE APPEARANCE Clear; URINE BILIRRUBIN Negative (NEGATIVE); URINE BLOOD Negative; URINE COLOR Yellow; URINE GLUCOSE Negative (NEGATIVE); URINE KETONE Negative (NEGATIVE); URINE LEUKOCYTE Moderate; URINE NITRATE Negative; URINE PROTEIN Negative (NEGATIVE); URINE UROBILINOGEN 1.0 E.U./dl
[2024-11-25 07:36] LABS: URINE BACTERIA 5103.2 uL (0.0-1933); URINE EPITHELIAL CELLS 1.8 uL (0.0-38.8); URINE RBC 4.3 uL (0.0-20.8); URINE WBC 311.1 uL (0.0-23.2)
[2024-11-25 07:51] LABS: URINE CAST 0.29 uL (0.0-1.40)
[2024-11-25 08:05] LABS: ALT/SGPT 57.0 U/L (12-78); AST/SGOT 25.0 U/L (15-37); BILIRUBIN TOTAL 0.5 mg/dL (0.3-1.2); BUN CREA RATIO 11.0 (7.0-25.0); CHOL HDL RATIO 2.2 (0-5.0); CREATININE SERUM 0.9 mg/dL (0.55-1.02); GFR 64.54; GLOBULINA 3.1 G/DL (2.4-3.5); GLUCOSE FASTING 79.0 mg/dL (65-100); HDL 63.0 mg/dl (40-60); LDL 56.0 mg/dl (0-130); OSMOLALITY SERUM 283.0 MOSM/KG (275-295); TSH 1.83 uIU/mL (0.358-3.74); VLDL 21.0 (0-39)
== END 2024-11-25 06:32 | disposition home or self-care (01) ==
LOC: LAB 06:24
DX: R00.2 Palpitations (principal); I11.9 Hypertensive heart disease without heart failure; E11.9 Type 2 diabetes mellitus without complications; E78.2 Mixed hyperlipidemia; N39.0 Urinary tract infection, site not specified

== ENCOUNTER → 2024-12-15 09:14 | Outpatient (CLI) | payer OTHER ==
[2024-12-15 10:04] LABS: BASO % 0.6 % (0.1-1.2); EOS # 0.07 (0.04-0.54); EOS % 1.4 % (0.7-7.0); LYMPH # 1.84 (1.18-3.74); LYMPH % 36.1 % (19.3-53.1); MEAN PLATELET VOLUME 10.20 fl (9.4-12.4); MONO # 0.49 (0.24-0.82); MONO % 9.6 % (4.7-12.5); NEUT # 2.65 (1.56-6.13); NEUT % 52.1 % (34.0-71.1); RED CELL DISTRIBUTION WIDTH 12.5 % (11.6-14.4)
[2024-12-15 10:22] LABS: URINE APPEARANCE Cloudy; URINE BILIRRUBIN Negative (NEGATIVE); URINE BLOOD Trace; URINE COLOR Yellow; URINE GLUCOSE Negative (NEGATIVE); URINE KETONE Negative (NEGATIVE); URINE LEUKOCYTE Large; URINE NITRATE Positive; URINE PROTEIN Negative (NEGATIVE); URINE UROBILINOGEN 0.2 E.U./dl
[2024-12-15 10:23] LABS: URINE EPITHELIAL CELLS 2.3 uL (0.0-38.8); URINE RBC 6.7 uL (0.0-20.8); URINE WBC 1989.2 uL (0.0-23.2)
[2024-12-15 11:03] LABS: URINE BACTERIA > 9821.5 uL (0.0-1933); URINE CAST 0.29 uL (0.0-1.40)
== END | disposition home or self-care (01) ==
LOC: LAB 09:14
DX: N30.00 Acute cystitis without hematuria (principal); Z88.3 Allergy status to other anti-infective agents

== ENCOUNTER 2025-03-02 11:10 | Outpatient (CLI) | payer OTHER ==
[2025-03-02 13:23] LABS: BASO % 0.4 % (0.1-1.2); EOS # 0.09 (0.04-0.54); EOS % 1.0 % (0.7-7.0); LYMPH # 2.26 (1.18-3.74); LYMPH % 24.1 % (19.3-53.1); MEAN PLATELET VOLUME 9.70 fl (9.4-12.4); MONO # 0.58 (0.24-0.82); MONO % 6.2 % (4.7-12.5); NEUT # 6.37 (1.56-6.13); NEUT % 68.0 % (34.0-71.1); RED CELL DISTRIBUTION WIDTH 13.3 % (11.6-14.4)
[2025-03-02 13:44] LABS: URINE APPEARANCE Turbid; URINE BILIRRUBIN Negative (NEGATIVE); URINE BLOOD Moderate; URINE COLOR Yellow; URINE GLUCOSE Negative (NEGATIVE); URINE KETONE Negative (NEGATIVE); URINE LEUKOCYTE Large; URINE NITRATE Positive; URINE PROTEIN 30 (NEGATIVE); URINE UROBILINOGEN 0.2 E.U./dl
[2025-03-02 13:47] LABS: URINE EPITHELIAL CELLS 8.1 uL (0.0-38.8); URINE RBC 9.0 uL (0.0-20.8)
[2025-03-02 13:57] LABS: URINE BACTERIA > 9821.5 uL (0.0-1933); URINE CAST 1.25 uL (0.0-1.40); URINE WBC > 5548.3 uL (0.0-23.2)
[2025-03-02 14:06] LABS: CHOL HDL RATIO 2.3 (0-5.0); HDL 71.0 mg/dl (40-60); LDL 72.0 mg/dl (0-130); TSH 1.68 uIU/mL (0.358-3.74); VLDL 18.0 (0-39)
[2025-03-02 15:11] LABS: VITAMIN D3 25 HYDROXY 93.69 ng/ml (30-120)
== END 2025-03-02 11:48 | disposition home or self-care (01) ==
LOC: LAB 11:10
DX: N95.1 Menopausal and female climacteric states (principal); N39.0 Urinary tract infection, site not specified; E55.9 Vitamin D deficiency, unspecified